=== PATIENT | male | born 2000 | race Caucasian/White ===

== ENCOUNTER 2023-04-17 15:42 | Emergency (ER) | payer OTHER ==
[~2023-04-17] VITALS: Ht 172.7 cm; Wt 98.0 kg
[2023-04-17 16:02] VITALS: TEMP 98.5; O2SAT 97
[2023-04-17] MEDS ORDERED: METOCLOPRAMIDE HCL 10MG/2ML VIAL IM ONE (22:15)
[2023-04-17] MEDS ORDERED: KETOROLAC 15MG/ML VIAL IM ONE (22:15)
[2023-04-17] MEDS ORDERED: DIPHENHYDRAMINE 50MG/ML VIAL IM ONE (22:15)
[2023-04-17 22:34] VITALS: BP 125/76; PULSE 90; RESP 18
== END 2023-04-17 22:40 | disposition home or self-care (01) ==
LOC: ER 15:42
DX: R51.9 Headache, unspecified (principal); Z88.0 Allergy status to penicillin
CPT/HCPCS: 99284; 70450; J1200; J1885; J2765